=== PATIENT | male | born 1950 | race Caucasian/White ===

== ENCOUNTER 2020-11-06 08:59 | Outpatient (CLI) | payer MEDICARE, SELFPAY | END 2020-11-06 09:00 | disposition home or self-care (01) | LOC: ANHCOVIDVC 08:59 | PROVIDERS: PCP Family Medicine; Visit Provider Internal Medicine Nephrology | DX: Z23 Encounter for immunization (principal) | CPT/HCPCS: 0001A; 91300 ==

== ENCOUNTER 2020-11-27 08:58 | Outpatient (CLI) | payer MEDICARE, SELFPAY | END 2020-11-27 08:59 | disposition home or self-care (01) | LOC: ANHCOVIDVC 08:59 | PROVIDERS: PCP Family Medicine | DX: Z23 Encounter for immunization (principal) | CPT/HCPCS: 0002A; 91300 ==

== ENCOUNTER → 2021-06-04 04:57 | Outpatient (CLI) | payer MEDICARE, SELFPAY ==
[2021-06-05 01:26] LABS: SARS-CoV-2 RNA PCR Negative
== END ==
PROVIDERS: PCP Family Medicine; Visit Provider Family Medicine
DX: R68.89 Other general symptoms and signs (principal); Z20.822 Contact with and (suspected) exposure to COVID-19
CPT/HCPCS: C9803; U0003; U0005

== ENCOUNTER 2022-07-11 09:21 | Outpatient (CLI) | payer MEDICARE, SELFPAY ==
--- NOTE | ~2022-07-11 | NM_ITS ---
EXAMINATION: NM wilton stress w perfusion DATE: 07/11/2022 11:51 INDICATION: Atrial fibrillation TECHNIQUE: Rest images were obtained following intravenous administration of 9.8 mCi Tc99m tetrofosmi n (Myoview). The patient was infused intravenously with Lexiscan (Regadenoson). Then, 31 mCi Tc99m te trofosmin (Myoview) was administered intravenously, and stress images were obtained. Data was reconst ructed into short axis and horizontal and vertical long axis SPECT images. Gated SPECT images were al so obtained. COMPARISON: None. FINDINGS: There is no definite reversible or fixed perfusion abnormality to suggest ischemia or infar ction. There is normal left ventricular chamber size, wall motion and ejection fraction. Left ventr icular ejection fraction measures >70%. IMPRESSION: 1. Normal myocardial perfusion at rest and during stress. 2. Left ventricular ejection fraction measuring >70%. Reviewed, dictated and finalized at location B.
--- NOTE | 2022-07-11 09:59 | EST_ITS ---
Patient Info Name: Walter Rascon Age: 71 years : 1950 Gender: Male Ht: 73 in Wt: 275 lbs BSA: 2.58 m2 HR: 65 bpm BP: 133 / 75 mmHg Heart Rhythm: Sinus Rhythm Exam Date: 07/11/2022 10:39 AM Exam Location: [facility] Stress Patient Status: Outpatient Admit Date: 07/11/2022 Staff Ordering Physician: Imer Staley MD Attending Provider: Imer Staley MD Exercise Technologist: Angelica Kirk CT Exercise Physician: Young Harry DO Exam Type: CA stress wilton w NM Study Info Indications R07.9 - Chest pain, unspecified A regadenoson stress test was performed. Summary 1. 1. Negative lexiscan stress test for ischemic ST changes by ECG criteria. 2. 2. Stable hemodynamics throughout the test. 3. 3. Nuclear scan to follow and will be reported separately. Please correlate with it. 4. 4. Patient informed of the above results. Protocol: Lexiscan Stress ECG Details Stage: REST Duration (min): 1 min : 25 sec HR (bpm): 64 SBP (mmHg): 133 DBP (mmHg): 75 Stage: REST Duration (min): 14 min : 26 sec HR (bpm): 70 SBP (mmHg): 133 DBP (mmHg): 75 Stage: STAGE 1 Duration (min): 1 min : 0 sec HR (bpm): 69 SBP (mmHg): 126 DBP (mmHg): 74 Stage: RECOVERY Duration (min): 1 min : 0 sec HR (bpm): 72 SBP (mmHg): 126 DBP (mmHg): 74 Stage: RECOVERY Duration (min): 2 min : 0 sec HR (bpm): 74 SBP (mmHg): 126 DBP (mmHg): 74 Stage: RECOVERY Duration (min): 3 min : 0 sec HR (bpm): 72 SBP (mmHg): 122 DBP (mmHg): 68 Stage: RECOVERY Duration (min): 3 min : 0 sec HR (bpm): 72 SBP (mmHg): 122 DBP (mmHg): 68 Rest HR: 70 bpm Peak HR: 76 bpm Rest Sys BP: 133 mmHg Peak Sys BP: 126 mmHg Max Pred HR: 147 bpm % Max Pred HR: 52 % Target HR: 125 bpm Max RPP: 9,576 bpm*mmHg Termination Reason: Completed protocol Cardiac Symptoms: None Total Time: 1 min : 0 sec Rest Walters BP: 75 mmHg Peak Walters BP: 74 mmHg Total Dose: 0.4 mg Resting ECG Sinus rhythm, IRBBB. Stress ECG No ST changes. Arrhythmias None. Report Signatures
== END 2022-07-11 09:22 | disposition home or self-care (01) ==
PROVIDERS: PCP Family Medicine; Visit Provider Family Medicine
DX: I48.91 Unspecified atrial fibrillation (principal); R07.9 Chest pain, unspecified
CPT/HCPCS: 78452; 93017; A9502; J2785

== ENCOUNTER 2023-04-06 09:20 | Emergency (ER) | payer MEDICARE, SELFPAY ==
[2023-04-06 09:37] VITALS: BP 129/60; PULSE 73; RESP 18; TEMP 36.2; O2SAT 99
--- NOTE | 2023-04-06 09:48 | ED.GENADULT ---
HPI - General Adult General Chief complaint: Extremity Problem,Nontraumatic Stated complaint: lt leg discomfort Time Seen by Provider: 04/06/23 09:49 Source: patient Mode of arrival: ambulatory Limitations: no limitations History of Present Illness HPI narrative: 72 y/o male with hx afib, diabetes, and htn presented for c/o left calf vein irritation since last night. States he felt like 'a worm was crawling up the leg' which caused difficulty sleeping. States he applied 'neuropathy cream' to the site and was able to sleep. This morning he woke with the same sensation, which improved after wearing his compression stockings. 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 Denies history of blood clot in leg. Currently denies redness, swelling or calf pain/tenderness, numbness, tingling or weakness. Denies chest pain, palpitations, sob, n/v/d/f/c. Takes ASA 81mg. Related Data Home Medications Medication Instructions Recorded Confirmed blood sugar diagnostic #10 ea 09/15/19 04/06/23 cholecalciferol (vitamin D3) 25 25 mcg PO DAILY 10/07/19 04/06/23 mcg (1,000 unit) capsule mecobalamin (vitamin B12) 5,000 5,000 mcg PO DAILY 10/07/19 04/06/23 mcg disintegrating tablet bwtdvnnnrsgn-oqgwwxrt-rzfvrx tablet 1 tablet PO DAILY 10/07/19 04/06/23 aspirin 81 mg tablet,delayed 81 mg PO DAILY 08/13/20 04/06/23 release insulin degludec 100 60 unit subcut DAILY 12/02/21 04/06/23 unit-liraglutide 3.6 mg/mL(3 mL) subcutaneous pen (Xultophy 100/3.6) Allergies Allergy/AdvReac Type Severity Reaction Status Date / Time WILMAN Inhibitors Allergy Mild Unknown Verified 04/06/23 09:41 fosinopril Allergy Unknown Cough Verified 04/06/23 09:41 latex Allergy Unknown unknown Verified 04/06/23 09:41 neomycin Allergy Unknown Rash Verified 04/06/23 09:41 Sulfa (Sulfonamide Allergy Unknown unknown Verified 04/06/23 09:41 Antibiotics) Review of Systems Review of Systems: CONSTITUTIONAL: Denies body aches, fever, chills EYES: Denies visual changes ENT: Denies rhinorrhea, congestion CARDIOVASCULAR: Denies chest pain, palpitations, or edema. RESPIRATORY: Denies cough or dyspnea. GASTROINTESTINAL: Denies abdominal pain, nausea, vomiting, or diarrhea. SKIN: Denies rash, itching, or wounds. MUSCULOSKELETAL: Reports left calf irritation Denies back pain, joint pain, or myalgia. NEUROLOGIC: Denies headache, numbness, tingling, or weakness. PSYCH: Denies depression or anxiety. All systems reviewed & are unremarkable except as noted in HPI and below PMFSH Past Medical History Medical History Afib Anemia Chest pain Hyperlipidemia Hypertension Neuropathy Other male erectile dysfunction Proteinuria Renal insufficiency Type 2 diabetes mellitus with diabetic nephropathy Surgical History Surgical History Appendicitis Previous back surgery Family History Family History Grandparent Family history of cardiovascular disease Family history of pancreatic cancer Other Family history of arthritis Family history of osteoporosis Social History Social History Smoking status: Never smoker Alcohol intake: never Substance use: never Substance use type: does not use Lack of Transportation: No Lack of Food: Never True Current Housing: I Have Housing Concerned About Future Housing: No Difficulty Paying Gas/Electric Bills: No Difficulty Paying for Meds: No Currently Unemployed: No Education: Associate Degree Difficulty w/ Childcare or Family Care: No Living arrangements: with family Occupation/Education: retired Gender identity (if verbalized by the patient): Male Spiritual care concerns: No Agree to blood products: Yes Comments At [facility]
== END 2023-04-06 10:33 | disposition left against medical advice (07) ==
PROVIDERS: Emergency Provider Nurse Practitioner Family; PCP Family Medicine
DX: I83.92 Asymptomatic varicose veins of left lower extremity (principal); I48.91 Unspecified atrial fibrillation; E78.5 Hyperlipidemia, unspecified; I10 Essential (primary) hypertension; E11.42 Type 2 diabetes mellitus with diabetic polyneuropathy; Z79.4 Long term (current) use of insulin; Z79.82 Long term (current) use of aspirin
CPT/HCPCS: 93971; 99211; G0463

== ENCOUNTER 2023-04-06 13:57 | Outpatient (CLI) | payer MEDICARE, SELFPAY ==
--- NOTE | ~2023-04-06 | US_ITS ---
EXAMINATION: US venous doppler [facility] DATE: 04/06/2023 14:39 INDICATION: Localized swelling of the left lower limb TECHNIQUE: Grayscale ultrasound images without and with compression and Doppler ultrasound images of the left lower extremity veins were obtained. COMPARISON: None. FINDINGS: The visualized portions of left common femoral vein, profunda (deep) femoral vein, femoral vein, popl iteal vein, peroneal veins, posterior tibial veins, gastrocnemius vein and greater saphenous vein out flow are patent. IMPRESSION: 1. No deep venous thrombosis in the left lower limb. Reviewed, dictated and finalized at location B.
== END 2023-04-06 13:58 | disposition home or self-care (01) ==
PROVIDERS: PCP Family Medicine; Visit Provider Internal Medicine Cardiovascular Disease
DX: R60.0 Localized edema (principal)
CPT/HCPCS: 93971

== ENCOUNTER 2024-02-20 07:29 | Outpatient (CLI) | payer MEDICARE, SELFPAY ==
[2024-02-20 08:40] LABS: Hemoglobin 11.7 g/dL (14.0-18.0); Mean Corpuscular HGB Conc 33.4 g/dl (32-36); Mean Corpuscular Hemoglobin 30.3 pg (26-34); Mean Corpuscular Volume 90.7 fl (80-100); Platelet Count Result 278 k/mm3 (150-375); Red Blood Count 3.86 M/mm3 (4.6-6.20); Red Cell Distribution Width 12.8 % (11.5-14.5); White Blood Count 7.3 K/mm3 (4.5-10.0)
[2024-02-20 08:53] LABS: Albumin Level 4.3 g/dL (3.5-5.1); Anion Gap 12 mmol/L (4-12); Blood Urea Nitrogen 26 mg/dL (9-20); Calcium 9.5 mg/dL (8.4-10.2); Carbon Dioxide 24 mmol/L (22-30); Chloride 105 mmol/L (98-107); Creatine Kinase 182 U/L (55-170); Estimated Glomerular Filt Rate 31; Glucose 160 mg/dL (65-110); Phosphorus 3.8 mg/dL (2.5-4.5); Potassium 4.4 mmol/L (3.4-5.0); Sodium 141 mmol/L (137-145)
[2024-02-20 09:49] LABS: Appearance Urine Clear (Clear); Bacteria Urine None Seen /hpf; Bilirubin Urine Negative (Negative); Blood Urine Negative (Negative); Color Urine Yellow (Yellow); Glucose Urine UA Negative (Negative); Ketones Urine Negative (Negative); Leukocyte Esterase Ur Negative LEU/UL (Negative); Nitrate Urine Negative (Negative); Non Pathogenic Casts 0-2; Protein Urine 2+ mg/dL (Negative); RBC Urine 0-2 /hpf (0-2); Specific Grav Ur 1.012 (1.001-1.035); Squamous Epithelial Cell Urine None Seen /hpf (Few); Urobilinogen Urine 0.2 mg/dL (<2.0); WBC Urine 0-5 /hpf (0-3); pH Urine 5.5 (5.0-9.0)
[2024-02-20 10:00] LABS: Add Urine Microscopic? YES
[2024-02-20 10:16] LABS: Creatinine Urine 88.4 mg/dL
[2024-02-20 10:24] LABS: Sodium Urine Random 89 meq/L
== END 2024-02-20 07:30 | disposition home or self-care (01) ==
LOC: ANHLAB 07:32
PROVIDERS: PCP Family Medicine; Visit Provider Internal Medicine Nephrology
DX: E11.21 Type 2 diabetes mellitus with diabetic nephropathy (principal); N18.32 Chronic kidney disease, stage 3b
CPT/HCPCS: 36415; 80069; 81001; 82550; 82570; 84300; 85027

== ENCOUNTER 2024-03-02 15:24 | Outpatient (CLI) | payer MEDICARE, SELFPAY ==
--- NOTE | ~2024-03-02 | US_ITS ---
US renal BI Ordering provider: Claudy Hernandez MD History: . N18.32 - Chronic kidney disease, stage 3b . Comparison: The Technique: Ultrasound bilateral kidneys. Findings: RIGHT KIDNEY: Measures 13.5x 8.1x 3.9 cm in length which is normal in size. 2 cysts are seen measurin g 1.3 x 1.1 x 1.1 and 1.2 x 1.2 x 1.1 cm.. No renal mass or visualized echogenic stones. Otherwise, n ormal echotexture No hydronephrosis. Normal renal cortical thickness. Lobulated outline. LEFT KIDNEY: Measures 13.1x 5.6x 5.1 cm in length which is normal in size. 2 cysts are seen measuring 4.3 x 3.5 x 5 and 2.2 x 1.4 x 2.3 cm. No renal mass or visualized echogenic stones. Otherwise, lisandra l echotexture . No hydronephrosis. Normal renal cortical thickness. Lobulated outline. BLADDER: Normal. Ureteral jets were not seen bilaterally. IMPRESSION: Lobulated outline of both kidneys. Bilateral renal cysts. Reviewed, dictated and finalized at location A.
== END 2024-03-02 15:25 | disposition home or self-care (01) ==
PROVIDERS: PCP Family Medicine; Visit Provider Internal Medicine Nephrology
DX: N18.32 Chronic kidney disease, stage 3b (principal); N28.1 Cyst of kidney, acquired
CPT/HCPCS: 76775

== ENCOUNTER 2025-06-20 15:03 | Outpatient (CLI) | payer MEDICARE, SELFPAY ==
--- NOTE | ~2025-06-20 | XR_ITS ---
EXAMINATION: XR finger 4th LT min 2V, 06/20/2025 15:12 CDT HISTORY: M25.549 - Pain in jts of unspecified hand, 4TH PIP SWOLLEN COMPARISON: No comparisons available. Findings: No acute fracture or malalignment. No significant degenerative changes. Soft tissues unremarkable. Impression: No acute fracture or malalignment. Reviewed, dictated and finalized at location P. Impression: No acute fracture or malalignment.
--- OUTSIDE RECORDS SUMMARY | 2025-06-20 16:53 | XMS_ITS | Clinical Summary ---
Author Organization [facility] Address [address] [place] [id number] Phone Care Team Providers Care Administrative Officer Name Role Phone Imer Staley Primary Care Provider [phone] Allergies Active Allergy Reactions Criticality Noted Date Comments Fosinopril Swelling Hydralazine Swelling Latex Rash Medium 11/30/2018 Sulfa Antibiotics Rash Medium 05/31/2018 Other reaction(s): Hives Medications olmesartan (BENICAR) 40 MG tablet 1 daily 0 8 Active SITagliptin-me tFORMIN (JANUMET) 50-1000 MG per tablet 1 bid 0 8 Active cholecalcifero l (VITAMIN D-3) 2000 units capsule 1 daily 6 Active pravastatin (PRAVACHOL) 40 MG tablet Take 40 mg by mouth 1 (one) time each day 0 9 Active glimepiride (AMARYL) 4 MG tablet Take 4 mg by mouth 2 (two) times a day 0 9 Active furosemide (LASIX) 80 MG tablet Take 80 mg by mouth 1 (one) time each day 0 9 Active SOLIQUA 100-33 UNT-MCG/ML solution pen-injector INJECT 16 UNITS SUBCUTANEOUSLY ONCE DAILY 1 9 Active Cyanocobalamin (B-12) 1000 MCG capsule Take by mouth 6 Active metoprolol succinate XL (TOPROL-XL) 50 MG 24 hr tablet Take 1 tablet (50 mg total) by mouth 1 (one) time each day 30 tablet 5 0 Active XULTOPHY 100-3.6 UNIT-MG/ML solution pen-injector INJECT 36 UNITS SUBCUTANEOUSLY NIGHTLY 0 Active Multiple Vitamins-Bone Glue Maker als (CENTRUM SILVER ADULT 50+) tablet take daily Active glucose blood (OneTouch Ultra) test strip Use to test glucose 2 times daily 0 Active RELION PEN NEEDLES 31G X 6 MM misc INJECT 1 ONCE DAILY DIRECTED 0 Active glimepiride (AMARYL) 4 MG tablet Take 4 mg by mouth 2 times daily 9 Active aspirin EC 81 MG EC tablet Take 81 mg by mouth daily 0 Active Cartia XT 180 MG 24 hr capsule Take 180 mg by mouth 1 (one) time each day 0 Active methocarbamol (ROBAXIN) 500 MG tablet TAKE 1 TABLET BY MOUTH AT BEDTIME NEEDED FOR PAIN 0 Active spironolactone (ALDACTONE) 25 MG tablet Take 1 tablet by mouth once daily 90 tablet 2 Active insulin aspart (NovoLOG) 100 UNIT/ML injection Inject 15 Units under the skin in the morning and 15 Units in the evening. 2 Active Active Problems Problem Noted Date Diagnosed Date Stage 3a chronic kidney disease 10/06/2020 Atrial fibrillation with rapid ventricular respo nse 09/28/2019 Hyperlipidemia due to type 2 diabetes mellitus 0 02/08/2019 Overview (10/09/2019): Last Assessment & Plan: Goal of treatment , LDL cholesterol less than 100 ( less than 70 in patients with history of heart attacks and / or strokes ) NonHDL cholesterol ( total cholesterol minus HDL cholesterol ) goal less than 130 ( less than 100 in patients with history of heart attacks and / or strokes ) Low cholesterol, low fat diet was discussed and advised. Daily exercise On statin therapy with Pravachol Persistent proteinuria 01/04/2018 Type 2 diabetes mellitus wit h diabetic chronic kidney disease 11/03/2012 Hypercalcemia 03/25/2012 Essential (primary) hypertension 03/25/2012 Primary generalized osteoarthritis 03/25/2012 Immunizations Immunization Administration Dates Next Due Influenza TIV (IM) 08/13/2022(Deferred: Patient Refused) Pneumococcal Conjugate 08/13/2022(Deferred: Iman ent Refused) Pneumococcal Conjugate 13-Valent 08/13/2022(Defe rred: Patient Refused) Tdap 04/05/2013,04/05/2013 Family History Medical History Relation Comments Kidney disease Neg Hx Social History Tobacco Use Types Packs/Day Years Used Date Smoking Tobacco: Former Smokeless Tobacco: Never Alcohol Use Standard Drinks/Week Comments No 0 (1 standard drink = 0.6 oz pur e alcohol) AUDIT-C Answer Date Recorded Frequency of Alcohol Consumption Never 01/05/2019 Average Number of Drinks Not on file 019 Frequency of Binge Drinking Not on file 09/2018 Sex and Gender Information Value Date Recorded Sex Assigned at Not on file Legal Sex Male 9:51 AM [facility] Gender Identity Not on file Sexual Orientation Not on file Last Filed Vital Signs Vital Sign Reading Time Taken Comments Blood Pressure 110/70 08/13/2022 2:37 PM [facility] Pulse 72 08/13/2022 2:37 PM [facility] Temperature 35.7 C (96.2 F) 08/13/2022 2:37 PM [facility] Respiratory Rate - - Oxygen Saturation - - Inhaled Oxygen Concentration - - Weight 124 kg (273 lb) 08/13/2022 2:37 PM [facility] Height 185.4 cm (6' 1) 08/13/2022 2:37 PM [facility] Body Mass Index 36.02 08/13/2022 2:37 PM [facility] Plan of Treatment Health Maintenance Due Date Last Done Comments Pneumococcal PPSV23/PCV13 65 + Years / Low and Medium Risk (1 of 2 - PCV) 1998 Influenza Vaccine (#1) 2025 Insurance [facility] MEDICARE Care Teams Administrative Officer Relationship Specialty Start Date End Date Luís, Imer PCP - General Family Medicine 08/13/22
--- OUTSIDE RECORDS SUMMARY | 2025-06-20 16:53 | XMS_ITS | Encounter Summary ---
Author Organization [facility] Address [address] [place] [address] Care Team Providers Care Diamond Broker Name Role Phone Unavailable Primary Care Provider Unavailabl e Encounter Details Date Type Department Care Team (Late st Contact Info) Description 06/01/2023 Lab Requisition [facility] - DermPath Lab [address] [place] [address] Meagan Casiano DO [address] [facility] [place] [address] Social History Tobacco Use Types Packs/Day Years Used Date Smoking Tobacco: Never Assessed Sex and Gender Information Value Date Recorded Sex Assigned at Not on file Legal Sex Male 6:02 PM [employer] Gender Identity Not on file Sexual Orientation Not on file documented as of this encounter Plan of Treatment Not on file documented as of this encounter Procedures Procedure Name Priority Date/Time Associated Diagnosis Comments DERMATOPATHOLOGY Routine 06/01/2023 3:37 PM CDT documented in this encounter Results * DERMATOPATHOLOGY (06/01/2023 3:37 PM CDT) Case Report Dermatopathology Report Case: [id number] Authorizing Provider: Meagan Casiano DO Collected: 06/01/2023 03:37 PM Ordering Location: [facility] DermPath Lab Received: 06/02/2023 04:10 PM Pathologist: Kesha Butts MD Specimen: Skin, right ant le 3 1:43 PM CDT DERMATOPATHOLOGY LABORATORY Final Diagnosis Specimen A. SKIN, right ant le: ACANTHOSIS AND HYPERKERATOSIS (L98.8) (see microscopic description and comment) 3 1:43 PM CDT DERMATOPATHOLOGY LABORATORY at 1342 CDT Clinical History R/O NMSC 3 1:43 PM CDT DERMATOPATHOLOGY LABORATORY Gross Description Specimen A: Received is one formalin filled container labeled with the patient's name and designated right ant le. The specimen consists of a shave biopsy measuring 6x6x1 mm. Jar 0. 3 1:43 PM CDT DERMATOPATHOLOGY LABORATORY Microscopic Description Specimen A. SKIN, right ant le: Sections show a superficial biopsy with acanthosis and hyperkeratosis. There is minimal dermis present for evaluation with scattered fibroblasts. COMMENT: These histological findings can be seen in a superficial biopsy of a dermatofibroma. 3 1:43 PM CDT DERMATOPATHOLOGY LABORATORY Disclaimer An external and internal positive and negative controls are appropriate for the histochemical, immunohistochemical and immunofluorescence stain(s) in this case (if any), except where stated explicitly. The performance characteristics of the stain(s) cited in this report were developed and its performance characteristic determined by the Dermatopathology Laboratory at [facility], directed by Dr. Opal Butts. These tests need not be, and therefore are not, approved by the [place] Food and Drug Administration. The tests are used for clinical purposes. Billing Codes Specimen Charges Stain Charges 67919 1 3 1:43 PM CDT DERMATOPATHOLOGY LABORATORY Embedded Images 3 1:43 PM CDT DERMATOPATHOLOGY LABORATORY Pathology/Cytolo gy TISSUE SPECIMEN FROM SKIN / Unknown 06/01/2023 3:37 PM CDT 06/02/2023 4:10 PM CDT Meagan Casiano DO LAB - PATHOLOGY/CYTOLOGY ORDERABLES Final Result DERMATOPATHOLOGY LABORATORY [facility] - Department of Dermatology [address], [address] [phone] documented in this encounter Visit Diagnoses Not on filedocumented in this encounter
--- OUTSIDE RECORDS SUMMARY | 2025-06-20 16:53 | XMS_ITS | Clinical Summary ---
Author Organization [facility] Address [facility] [place] [address] Care Team Providers Care Restaurant Area Director Name Role Phone Leroy Kenney MD Unavailable [phone] Yusuf Radford MD Primary Care Provider [phone] Allergies Active Allergy Reactions Criticality Noted Date Comments Fosinopril Swelling Hydralazine Swelling Latex Rash Medium 11/30/2018 Sulfa Antibiotics Hives,Rash Medium 05/31/2018 Other reaction(s): Hives Medications multi vitamin/mineral s tablet Take 1 tablet by mouth daily. Active vitamin D3, cholecalciferol , 1000 UNIT Tab tablet Take 2,000 Units by mouth daily. Active vitamin B-12 (CYANOCOBALAMIN ) 1000 mcg tablet Take 1,000 mcg by mouth daily. Active furosemide 80 MG tablet Take 80 mg by mouth daily. Active glimepiride 4 MG tablet Take 4 mg by mouth 2 (two) times daily before meals. Active Olmesartan Medoxomil 40 MG Tab Take 1 tablet by mouth every evening. Active pravastatin 40 MG tablet Take 40 mg by mouth every evening. Active SITagliptin-met FORMIN HCl 50-1000 MG Tab Take 1 tablet by mouth 2 (two) times daily with meals. Active Insulin Degludec-Liragl utide 100-3.6 UNIT-MG/ML Solution Pen-injector Inject 40 Units into the skin daily. Active spironolactone 25 MG tablet Take 25 mg by mouth every morning. Active aspirin EC 81 MG tablet Take 1 tablet (81 mg total) by mouth daily. 05/07/2020 Active dilTIAZem CD (CARDIZEM CD) 180 MG 24 hr capsule Take 1 capsule (180 mg total) by mouth daily. Call for appt for future refills 30 capsule 02/20/2023 Active Active Problems Problem Noted Date Diagnosed Date Atrial fibrillation with RVR 09/28/2019 Atrial fibrillation 09/28/2019 Hypokalemia 08/27/2019 Abscess of buttock, right 08/26/2019 Abscess of right buttock 08/26/2019 Hypertension associated with diabetes 02/08/2019 Overview (08/26/2019): Last Assessment & Plan: Goal blood pressure is less than 140/85 Low salt diet recommended Daily aerobic exercise Continue current meds, including WILMAN-I or ARB Check microalbumin Hyperlipidemia due to type 2 diabetes mellitus 0 02/08/2019 Overview (08/26/2019): Last Assessment & Plan: Goal of treatment [...] Daily exercise On statin therapy with Pravachol Type 2 diabetes mellitus wit h hyperglycemia, with long-term current use of insulin 11/30/2018 Overview (08/26/2019): Last Assessment & Plan: Hba1c was Lab Results Component Value Date HGBA1C 7.1 % 02/08/2019 today, indicating adequate DM control 1800 calorie, consistent carb diet recommended, no more than 3-45 grams of carbs per meal, avoiding concentrated sweet drinks and rapid absorption carbs. 25-45 min daily aerobic and resistance exercise recommended Prevention and treatment of hyypoglcyemia discussed. Blood glucose monitoring with fingers sticks 2 x day. 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 Encounters Date Type Department Care Team Description 04/10/2025 9:50 AM CDT - 04/10/2025 11:59 PM CDT Hospital Encounter [facility] [address] [place] [address] Claudy Hernandez MD Discharge Disposition: Home or Self Care (Routine Discharge) 04/10/2025 9:45 AM CDT - 04/10/2025 9:49 AM CDT Hospital Encounter [facility] [address] [place] [address] Young Harry DO Discharge Disposition: Home or Self Care (Routine Discharge) 04/10/2025 Orders Only [facility] [address] [place] [address] Claudy Hernandez MD 04/10/2025 Orders Only [facility] [address] [place] [address] Young Harry DO 04/10/2025 Travel from Last 3 Months Immunizations Immunization Administration Dates Next Due Tdap (Generic) 04/05/2013 Family History Medical History Relation Comments aortic aneurysm Father arrhythmia Father Relation Status Comments Father Social History Tobacco Use Types Packs/Day Years Used Date Smoking Tobacco: Former Cigarettes Q uit: 1970 Smokeless Tobacco: Never Alcohol Use Standard Drinks/Week Comments Yes 0 (1 standard drink = 0.6 oz pur e alcohol) rarely AUDIT-C Answer Date Recorded Frequency of Alcohol Consumption Never 09/28/2019 Average Number of Drinks Not on file 020 Frequency of Binge Drinking Not on file 09/08 Sex and Gender Information Value Date Recorded Sex Assigned at Not on file Legal Sex Male 7:27 PM CDT Gender Identity Not on file Sexual Orientation Not on file Last Filed Vital Signs Vital Sign Reading Time Taken Comments Blood Pressure 151/83 06/26/2022 6:00 PM CDT Pulse 67 06/26/2022 6:00 PM CDT Temperature 36.2 C (97.1 F) 06/26/2022 2:27 PM CDT Respiratory Rate 20 06/26/2022 6:00 PM CDT Oxygen Saturation 95% 06/26/2022 6:00 PM CDT Inhaled Oxygen Concentration - - Weight 120.7 kg (266 lb) 06/26/2022 2:27 PM CDT Height 185.4 cm (6' 1) 06/26/2022 2:27 PM CDT Body Mass Index 35.09 06/26/2022 2:27 PM CDT Plan of Treatment Health Maintenance Due Date Last Done Comments Kidney Health Evaluation 1948 Diabetes: Retinopathy Eye Exam 1966 Hepatitis C 1966 Pneumococcal Vaccine: 50+ Years (1 of 2 - PCV) 1967 Zoster Vaccines (1 of 2) 1998 Annual Medicare Wellness Visit 2013 Hemoglobin A1C 03/29/2020 09/29/2019, 12/06, 02/25/2017 DTaP, Tdap and Td Vaccines (2 - Td or Tdap) 04/05/2023 04/05/2013 RSV Immunization or 60+ Years (1 - 1-dose 75+ series) 2023 COVID-19 Vaccine ( - season) 2025 Influenza Adult (#1) 2025 Lipid Panel 04/10/2026 04/10/2025, 11/07, 11/25/2024, Additional history exists Meningococcal B Vaccine Aged Out No l onger eligible based on patient's age to complete this topic Meningococcal Vaccine Aged Out No jing manuel eligible based on patient's age to complete this topic RSV Immunizations Under 20 Months Aged Out No longer eligible based on patient's age to complete this topic Goals Goal Patient Goal Type Associated Problems Recent Progress Patient-Stated? Author HOME WITH [facility] Jennifer Honeycutt RN Procedures Procedure Name Priority Date/Time Associated Diagnosis Comments HC CREATININE OTH SOURCE Routine 04/10/2025 3:32 PM CDT Stage 3b chronic kidney disease (CMS/HCC) Disorder of kidney and ureter, unspecified PTH - INTACT Routine 04/10/2025 9:50 AM CDT Stage 3b chronic kidney disease (CMS/HCC) Disorder of kidney and ureter, unspecified CBC, AUTO, NO DIFF Routine 04/10/2025 9: 50 AM CDT Stage 3b chronic kidney disease (CMS/HCC) Disorder of kidney and ureter, unspecified RENAL FUNCTION PANEL Routine 04/10/2025 9:50 AM CDT Stage 3b chronic kidney disease (CMS/HCC) Disorder of kidney and ureter, unspecified LIPID PANEL Routine 04/10/2025 9:50 AM CDT Hyperlipidemia HEMOGLOBIN, GLYCOSYLATED Routine 09/29/2019 5:47 AM MEDIA SERVICES COORDINATOR from Last 3 Months or Most Recently Relevant to Health Maintenance Results * (ABNORMAL) PROTEIN CREAT RATIO URINE (04/10/2025 3:32 PM CDT) PROTEIN URINE TOTAL RANDOM 22.8(H) <10 MG/DL 04/10/2025 3:50 PM CDT [facility] CREATININE (U) 36.2(L) 39 - 259 MG/DL 04/10/2025 3:50 PM CDT [facility] PROTEIN/CREATIN INE RATIO 0.6 04/10/2025 3:50 PM CDT [facility] URINE SPECIMEN / Unknown 04/10/2025 3:32 PM CDT us Claudy Hernandez MD URINE ORDERABLES Final Result [facility] [address] [place] [address], [place] [phone] * PTH - INTACT (04/10/2025 9:50 AM CDT) PTH INTACT 72.0 18.4 - 80.1 PG/ML 04/10/2025 1:44 PM CDT [facility] 04/10/2025 9:50 AM CDT us Claudy Hernandez MD LABORATORY Final Result Performing Organization Address City/[facility]/ZIP Co de Phone Number [facility] [address] [place] [address], [place] [phone] * (ABNORMAL) RENAL FUNCTION PANEL (04/10/2025 9:50 AM CDT) [facility] GLUCOSE 191(H) 70 - 99 MG/DL 04/10/2025 10:41 AM T [facility] BUN 34(H) 7 - 18 MG/DL 04/10/2025 10:41 AM T [facility] CREATININE S/P/B 2.17(H) 0.7 - 1.3 MG/DL 04/10/2025 10:41 AM T [facility] SODIUM S/P/B 142 136 - 145 MMOL/L 04/10/2025 10:41 AM T [facility] POTASSIUM S/P/B 4.3 3.5 - 5.1 MMOL/L 04/10/2025 10:41 AM T [facility] CHLORIDE S/P/B 105 100 - 108 MMOL/L 04/10/2025 10:41 AM T [facility] CO2 27.2 21 - 32 MMOL/L 04/10/2025 10:41 AM [facility] CALCIUM S/P/B 9.0 8.5 - 10.1 MG/DL 04/10/2025 10:41 AM [facility] ALBUMIN S/P/B 3.8 3.4 - 5.0 G/DL 04/10/2025 10:41 AM [facility] PHOSPHORUS 3.3 2.5 - 4.9 MG/DL 04/10/2025 10:41 AM [facility] ANION GAP 9.8 5 - 15 MMOL/L 04/10/2025 10:41 AM [facility] BUN CREATININE RATIO 15.7 6 - 26 04/10/2025 10:41 AM T [facility] GFR ESTIMATE 31(L) >90 ML/MIN/1.7 3 M2 04/10/2025 10:41 AM T [facility] Comment: NOTE: eGFR is not calculated for patients <18 years of age. This is an estimated GFR calculation using the new CKD EPI creatinine equation without race and so does not require a correction factor for race. This estimated GFR should not be used for calculating drug doses. 04/10/2025 9:50 AM CDT Claudy Hernandez MD LABORATORY Final Result [facility] [address] [place] [address], * LIPID PANEL (04/10/2025 9:50 AM CDT) CHOLESTEROL 141 <200.0 MG/DL 04/10/2025 10:44 AM T [facility] TRIGLYCERIDES 122 <150 MG/DL 04/10/2025 10:44 AM [facility] HDL 47 >40.0 MG/DL 04/10/2025 10:44 AM [facility] LDL (CALCULATED) 70 <100 MG/DL 04/10/20 25 10:44 AM [facility] Comment:CALCULATED USING THE FRIEDEWALD EQUATION NON HDL CHOLESTEROL 94 <130 MG/DL 04/10 10:44 AM T [facility] CHOL/HDL RATIO 3.0 0.0 - 4.5 04/10/2025 10:44 AM T [facility] VLDL CALCULATION 24 5 - 55 MG/DL 04/10/2025 10:44 AM [facility] LIPID INTERPRETATION 04/10/2025 10:44 AM [facility] Comment: NIH CONCENSUS REPORT RECOMMENDATIONS: ADULT CHILD LOW RISK: CHOLESTEROL <200 <170 TRIGLYCERIDE <150 --- HDL >=60 --- LDL <100 <110 BORDERLINE: CHOLESTEROL 200-239 170-199 TRIGLYCERIDE 150-199 --- HDL 40-59 --- LDL 100-159 110-129 HIGH RISK: CHOLESTEROL >=240 >=200 TRIGLYCERIDE >=200 --- HDL <40 --- LDL >=160 >=130 04/10/2025 9:50 AM CDT Young Harry DO LABORATORY Final Result [facility] [address] [place] [address], * (ABNORMAL) CBC, AUTO, NO DIFF (04/10/2025 9:50 AM CDT) WBC 8.41 4.4 - 11.0 x10'3/uL 04/10/2025 10:29 AM CDT [facility] RBC 4.34(L) 4.50 - 5.90 x10'6/uL 04/10/2025 10:29 AM CDT [facility] HGB 12.7(L) 14.0 - 17.5 G/DL 04/10/2025 10:29 AM CDT [facility] HCT 37.2(L) 41.5 - 50.4 % 04/10/2025 10:29 AM CDT [facility] MCV 85.7 80.0 - 96.0 FL 04/10/2025 10:29 AM CDT [facility] MCH 29.3 26.5 - 31.4 PG 04/10/2025 10:29 AM CDT [facility] MCHC 34.1 31.9 - 34.8 G/DL 04/10/2025 10:29 AM CDT [facility] RDW 12.7 12.3 - 14.3 % 04/10/2025 10:29 AM CDT [facility] PLT 248 151 - 353 x10'3/uL 04/10/2025 10:29 AM CDT [facility] MPV 10.3 9.7 - 11.9 FL 04/10/2025 10:29 AM CDT [facility] 04/10/2025 9:50 AM CDT Claudy Hernandez MD LABORATORY Final Result Performing Organization Address City/[facility]/ZIP Co de Phone Number [facility] [address] [place] [address], [place] [phone] * (ABNORMAL) HEMOGLOBIN, GLYCOSYLATED (09/29/2019 5:47 AM MEDIA SERVICES COORDINATOR) HGB A1C 8.5(H) <5.7 % 09/29/2019 10:27 AM MEDIA SERVICES COORDINATOR [facility] Comment: INCREASED RISK OF DIABETES <5.7% NON-DIABETES 5.7-6.4% INCREASED RISK FOR FUTURE DIABETES > OR = 6.5 CONSISTENT WITH DIABETES STANDARDS OF MEDICAL CARE IN DIABETES-2010 DIABETES CARE, 33(SUPP 1): S1-S61,2010 09/29/2019 5:47 AM MEDIA SERVICES COORDINATOR Ning Barber APRN LABORATORY Final Result [facility] [address] [place] [address], [place] [phone] from Last 3 Months or Most Recently Relevant to Health Maintenance Insurance [employer] MEDICARE Advance Directives * Full Code (Latest Code Status on File) Date Activated Date Inactivated Comments 09/28/2019 4:10 PM 09/29/2019 5:09 PM * Full Code Date Activated Date Inactivated Comments 09/28/2019 4:03 PM 09/28/2019 4:10 PM * Full Code Date Activated Date Inactivated Comments 08/26/2019 4:01 PM 08/27/2019 3:45 PM Care Teams Restaurant Area Director Relationship Specialty Start Date End Date Yusuf Radford MD [address] [place] [id number] PCP - General FAMILY PRACTICE 06/15/24 Leroy Kenney MD [facility]. [facility] [address] [place] [address] [employer] Marketing Team Lead CARDIOVASCULAR DISEASE 09/07/19
--- OUTSIDE RECORDS SUMMARY | 2025-06-20 16:53 | XMS_ITS | Clinical Summary ---
Author Organization [facility] Physician Office Building [address] [place] [id number] Care Team Providers Care Personal Counselor Name Role Phone Claudy Hernandez MD Unavailable [phone] Imer Staley MD Primary Care Provider [phone] Allergies Active Allergy Reactions Criticality Noted Date Comments Fosinopril Swelling Medium 07/19/2020 Hydralazine Swelling Medium 07/19/2020 Latex Rash Medium 11/30/2018 Sulfa (Sulfonamide Antibiotics) Hives Medium 11/06 Medications cholecalcifero l (VITAMIN D-3) 2,000 unit capsule Take by mouth daily 10/17/19 16 Active furosemide (LASIX) 80 mg tablet Take 1 tablet (80 mg total) by mouth daily 10/27/19 19 Active pravastatin (PRAVACHOL) 40 mg tablet Take 1 tablet (40 mg total) by mouth daily 09/19/19 20 Active diltiazem (TIAZAC) 180 mg 24 hr capsule Take 1 capsule (180 mg total) by mouth daily 05/07/20 20 Active Kerendia 20 mg tablet Take 1 tablet by mouth daily 02/13/20 23 Active eplerenone (INSPRA) 25 mg tablet Take 1 tablet (25 mg total) by mouth daily 09/12/19 24 Active magnesium oxide (MAG-OX) 400 mg (241.3 mg elemental magnesium) tablet Take 1 tablet (400 mg total) by mouth daily 09/25/19 24 Active olmesartan (BENICAR) 40 mg tablet Take 1 tablet (40 mg total) by mouth daily 09/04/20 23 Active triamcinolone (KENALOG) 0.1 % cream 09/14/19 24 Active aspirin 81 mg enteric coated tablet Take 1 tablet (81 mg total) by mouth daily Active OneTouch Ultra Test stripIndicatio ns:Type 2 diabetes mellitus with hyperglycemia, without long-term current use of insulin (FORM[facility]) USE 1 STRIP TO CHECK GLUCOSE TWICE DAILY 200 each 11 08/03/20 24 Active ciclopirox (LOPROX) 0.77 % cream APPLY TO AFFECTED AREA OF FEET 1-2 TIMES DAILY 06/24/20 24 Active vitamin B complex capsule Take 1 capsule by mouth daily Active omega-3 fatty acids 1,000 mg capsule Take by mouth Active nystatin-triam cinolone ointment APPLY OINTMENT TOPICALLY TWICE DAILY 11/02/19 25 Active insulin glargine (LANTUS) 100 unit/mL (3 mL) pen for injectionIndic ations:Type 2 diabetes mellitus with hyperglycemia, with long-term current use of insulin (FORM[facility]) Inject 40 Units under the skin nightly 45 mL 2 01/13/20 25 026 Active glimepiride (AMARYL) 4 mg tabletIndicati ons:Type 2 diabetes mellitus with hyperglycemia, with long-term current use of insulin ([facility]) TAKE 1 TABLET BY MOUTH TWICE DAILY WITH MEALS 180 tablet 05/15/20 25 Active Janumet 50-1,000 mg per tabletIndicati ons:Type 2 diabetes mellitus with hyperglycemia, with long-term current use of insulin ([facility]) TAKE 1 TABLET BY MOUTH TWICE DAILY WITH MEALS 180 tablet 06/08/20 25 Active pen needle, diabetic 31 gauge x 15/64 needleIndicati ons:Type 2 diabetes mellitus with hyperglycemia, with long-term current use of insulin ([facility]) USE 1 NEW NEEDLE ONCE DAILY DIRECTED 50 each 06/08/20 25 Active Janumet 50-1,000 mg per tablet Take 1 tablet by mouth 12/18/19 25 025 Discontinued pen needle, diabetic 31 gauge x 15/64 needleIndicati ons:Type 2 diabetes mellitus with hyperglycemia, with long-term current use of insulin ([facility]) USE 1 ONCE DAILY DIRECTED 50 each 03/22/20 25 025 Discontinued Active Problems Problem Noted Date Diagnosed Date CKD stage 4 due to type 2 diabetes mellitus 09/07 Assessment & Plan (01/12/2025 2:44 PM CDT): Chronic problem. Currently taking CKD: Kerendia 20mg daily, olmesartan 40mg daily Managed by Dr Claudy Hernandez (renal). DENISHA 11/02/24; no changes at that time. Nephropathy: On WILMAN-I / ARB s : Yes. olmesartan 40mg daily. Last MA: 07/02/23 (1794). Last creat/GFR: 12/05/24 GFR=30, CR=2.19. Assessment & Plan (09/21/2024 2:43 PM SUSTAINABILITY ANALYST): Chronic problem. Currently taking CKD: Kerendia 20mg daily, olmesartan 40mg daily Managed by Dr Claudy Hernandez (renal). NOV 11/02/24. Nephropathy: On WILMAN-I / ARB s : Yes. olmesartan 40mg daily. Last MA: 07/02/23 (1794). Last creat/GFR: 01/28/24 GFR=28, CR=2.36. Diabetic polyneuropathy asso ciated with type 2 diabetes mellitus 07/02/2023 Assessment & Plan (01/12/2025 2:12 PM CDT): Chronic problem. Did not like how Lyrica made him feel. Reviewed foot care; needs to lotion daily. Aware to check feet nightly, not to go barefoot. Assessment & Plan (09/21/2024 2:45 PM SUSTAINABILITY ANALYST): Chronic problem. Did not like how Lyrica made him feel. Reviewed foot care; needs to lotion daily. Aware to check feet nightly, not to go barefoot. Assessment & Plan (05/19/2024 2:03 PM CDT): Chronic problem. Did not like how Lyrica made him feel. Aware to check feet nightly & not to go barefoot. Assessment & Plan (07/02/2023 2:59 PM CDT): Chronic problem. Did not like how Lyrica made him feel. Aware to check feet nightly & not to go barefoot. Morbid (severe) obesity due to excess calories 1 Class 2 severe obesity due t o excess calories with serious comorbidity and body mass index (BMI) of 35.0 to 35.9 in adult 07/02/2023 Assessment & Plan (07/02/2023 3:39 PM CDT): Discussed healthy diet and importance of regular physical activity (20- 30min/day, 150min/wk). CKD (chronic kidney disease) stage 3, GFR 30-59 ml/min 05/30/2021 Assessment & Plan (09/21/2024 1:51 PM SUSTAINABILITY ANALYST): Chronic problem. Currently taking CKD: Kerendia 20mg daily, olmesartan 40mg daily Managed byDr Claudy Hernandez (renal). Nephropathy: On WILMAN-I / ARB s : Yes. olmesartan 40mg daily. Last MA: 07/02/23 (1793). Last creat/GFR: 01/05/24 GFR=33, CR=2.05. Assessment & Plan (05/19/2024 2:47 PM CDT): Chronic problem. Currently taking CKD: Kerendia 20mg daily, olmesartan 40mg daily Managed byDr Claudy Hernandez (renal). Nephropathy: On WILMAN-I / ARB s : Yes. olmesartan 40mg daily. Last MA: 07/02/23 (1793). Last creat/GFR: 01/05/24 GFR=33, CR=2.05. Assessment & Plan (07/02/2023 3:40 PM CDT): Chronic problem. Currently taking kerendia 20mg daily. Managed byDr Claudy Hernandez (renal). Assessment & Plan (05/30/2021 2:47 PM CDT): Would recommend to add Farxiga Hypertension associated with diabetes 02/08/2019 Assessment & Plan (01/12/2025 2:12 PM CDT): Chronic problem. Controlled on current olmesartan 40mg daily, diltiazem 180mg daily, lasix 80mg daily Assessment & Plan (09/21/2024 1:52 PM SUSTAINABILITY ANALYST): Chronic problem. Controlled on current olmesartan 40mg daily, diltiazem 180mg daily, lasix 80mg daily Assessment & Plan (05/19/2024 2:46 PM CDT): Chronic problem. Controlled on current olmesartan 40mg daily, diltiazem 180mg daily, lasix 80mg daily Assessment & Plan (01/05/2024 3:53 PM CDT): Chronic, stable. Update GFR Continue olmesartan Assessment & Plan (10/01/2023 4:31 PM SUSTAINABILITY ANALYST): Chronic, well-controlled Continue medications including ARB with olmesartan Assessment & Plan (07/02/2023 2:19 PM CDT): Chronic problem. Controlled on current amlodipine-olmesartan 5-40mg daily & lasix 80mg daily. Assessment & Plan (03/05/2023 1:36 PM CDT): Chronic, well-controlled. Continue current regimen Assessment & Plan (11/28/2021 5:07 PM CDT): Goal blood pressure is less than 140/85 Low salt diet was discussed andd recommended The importance of daily aerobic exercise was also emphasized. Continue current meds, including WILMAN-I or ARB, e.g. Check MA Assessment & Plan (01/22/2021 4:05 PM CDT): Goal blood pressure is less than 140/85 Low salt diet was discussed andd recommended The importance of daily aerobic exercise was also emphasized. Continue current meds Check microalbumin Assessment & Plan (07/19/2020 1:33 PM SUSTAINABILITY ANALYST): Goal blood pressure is less than 140/85 Low salt diet was discussed andd recommended The importance of daily aerobic exercise was also emphasized. Continue current meds, including WILMAN-I or ARB, e.g. Benicar Assessment & Plan (02/23/2020 1:48 PM CDT): Goal blood pressure is less than 140/85 Low salt diet recommended Daily aerobic exercise Continue current meds, including WILMAN-I or ARB with Olmesartan Assessment & Plan (10/18/2019 2:29 PM SUSTAINABILITY ANALYST): Goal blood pressure is less than 140/85 Low salt diet recommended Daily aerobic exercise Continue current meds, including WILMAN-I or ARB Assessment & Plan (06/21/2019 11:26 AM CDT): Goal blood pressure is less than 140/85 Low salt diet recommended Daily aerobic exercise Continue current meds, including WILMAN-I or ARB Check microalbumin Assessment & Plan (02/08/2019 2:31 PM CDT): Goal blood pressure is less than 140/85 Low salt diet recommended Daily aerobic exercise Continue current meds, including WILMAN-I or ARB Hyperlipidemia due to type 2 diabetes mellitus 0 02/08/2019 Assessment & Plan (01/12/2025 2:12 PM CDT): Chronic problem. Near goal on current Pravastatin 40mg. Last lipid panel: 12/05/24 LDL=74, TT=907. Assessment & Plan (09/21/2024 1:52 PM SUSTAINABILITY ANALYST): Chronic problem. At goal on current Pravastatin 40mg. Last lipid panel: 01/28/24 LDL=48, GG=095. Assessment & Plan (05/19/2024 2:02 PM CDT): Chronic problem. At goal on current Pravastatin 40mg. Last lipid panel: 01/05/24 LDL=74, GQ=168. Assessment & Plan (01/05/2024 3:54 PM CDT): Chronic, stable. Continue statin therapy with pravastatin 40 mg daily. Update lipid profile Assessment & Plan (10/01/2023 4:30 PM SUSTAINABILITY ANALYST): Chronic, stable Continue statin therapy with Pravachol Assessment & Plan (07/02/2023 2:19 PM CDT): Chronic problem. At goal on current Pravastatin 40mg. Last lipid panel: 10/07/22 LDL=59, WX=075. Assessment & Plan (10/02/2022 4:34 PM SUSTAINABILITY ANALYST): Chronic, well controlled Low fat Low cholesterol diet Exercise Continue statin therapy with Pravastatin Update lipid profile Assessment & Plan (05/30/2021 2:46 PM CDT): LDL at 80 with high triglycerides. Diet and exercise Continue Pravachol Assessment & Plan (01/22/2021 4:05 PM CDT): Goal of treatment , LDL cholesterol less [...] Daily exercise On statin therapy with Pravachol Assessment & Plan (07/19/2020 1:34 PM SUSTAINABILITY ANALYST): Goal of treatment , LDL cholesterol less [...] Daily exercise On statin therapy with Pravachol Assessment & Plan (02/23/2020 1:47 PM CDT): Goal of treatment , LDL cholesterol less [...] and advised. Daily exercise On statin therapy Check fasting lipids Assessment & Plan (10/18/2019 2:29 PM SUSTAINABILITY ANALYST): Goal of treatment , LDL cholesterol less [...] and advised. Daily exercise On statin therapy Assessment & Plan (06/21/2019 11:26 AM CDT): Goal of treatment , LDL cholesterol less [...] Daily exercise On statin therapy with Pravachol Assessment & Plan (02/08/2019 2:30 PM CDT): Goal of treatment , LDL cholesterol less [...] and advised. Daily exercise On statin therapy Type 2 diabetes mellitus wit h hyperglycemia, with long-term current use of insulin 11/30/2018 Assessment & Plan (01/12/2025 2:44 PM CDT): Chronic problem. A1c improved very mildly from 8.6% 09/21/24 to now 8.5%. Has tried to change when he takes Xultophy but does not improve hand burning pain. Not really interested in taking short acting & long acting insulin but aware that current medication is not helping. Aware that current treatment not working. Will switch to long acting & stop xultophy to see if hand burning stops. Current medications: Janumet 50-1000 twice daily before meals Glimepiride 4 mg before breakfast & dinner Lantus 40 units every evening. Will update MA/Cr. Does not mychart. Verified phone #/address to contact re: results. UTD on DM eye exam (no DMR/DME 07/28/24 at [facility]). Strive for regular exercise (30min most days) and diet (get at least 4-5 servings of fruit and veggies daily, avoid processed foods, increase lean protein intake and decrease carb portions as well as fruit juices, regular soda & desserts). Watch carbs and simple sugars. Check the blood sugar twice daily. Check the feet daily for skin breakdown and infection. Assessment & Plan (09/21/2024 2:44 PM SUSTAINABILITY ANALYST): Chronic problem. A1c improved very mildly from 8.8% /08/30/24 to now 8.6%. Reviewed blood sugar log: drinking 3 regular sodas/day (Sundrop has 45g sugar & 46 g carbs per can). Again declines to move to diet soda. Discussed moving to long-acting/short-acting insulin as the current meds are max'd out. Change Xultophy from evening to morning injections to hopefully avoid the overnight lows & ensure that you can take the Xultophy every day & not miss doses. Current medications: Janumet 50-1000 twice daily before meals Glimepiride 4 mg before breakfast & dinner Xultophy 60 units every morning UTD on labs. UTD on DM eye exam (no DMR/DME 07/28/24 at [facility]). Strive for regular exercise (30min most days) and diet (get at least 4-5 servings of fruit and veggies daily, avoid processed foods, increase lean protein intake and decrease carb portions as well as fruit juices, regular soda & desserts). Watch carbs and simple sugars. Check the blood sugar twice daily. Check the feet daily for skin breakdown and infection. Assessment & Plan (05/19/2024 2:46 PM CDT): Chronic problem. A1c improved very mildly from 9.1% 01/05/24 to now 8.8%. Reviewed blood sugar log: drinking 3 regular sodas/day (Sundrop has 45g sugar & 46 g carbs per can). Discussed moving to long-acting/short-acting insulin as the current meds are max'd out. Current medications: Janumet 50-1000 twice daily before meals Glimepiride 4 mg before breakfast & dinner Xultophy 60 units at bedtime UTD on labs. DM eye exam scheduled next month at [facility]. Will send letter to get copy of report. Strive for regular exercise (30min most days) and diet (get at least 4-5 servings of fruit and veggies daily, avoid processed foods, increase lean protein intake and decrease carb portions as well as fruit juices, regular soda & desserts). Watch carbs and simple sugars. Check the blood sugar twice daily. Check the feet daily for skin breakdown and infection. Assessment & Plan (01/05/2024 3:53 PM CDT): Chronic, uncontrolled, worse Would recommend prandial insulin the patient is declining. Increase Xultophy to 60 units HS Continue Janumet and glimepiride Assessment & Plan (10/01/2023 4:30 PM SUSTAINABILITY ANALYST): Hba1c was Lab Results Component Value Date HGBA1C 7.9 10/01/2023 today, indicating inadequate DM control Goal Hba1c under 7 and blood glucose level in the 120-160 range was explained Low carb diet and daily aerobic and /or resistant exercise were advised Prevention and treatment of hyypoglcyemia were discussed with the patient Blood glucose monitoring : bid ( pt not interested in CGM ) Adjustment to medications: Continue current regimen including glimeperide, janumet and Xultophy The patient will try to focus on diet Assessment & Plan (07/02/2023 3:39 PM CDT): Chronic problem. A1c improved from 9.2% 02/2023 to now 7.9%. Current medications: Janumet 50-1000 twice daily before meals Glimepiride 4 mg before breakfast & dinner Xultophy 0-50 units daily, typically 50 units Will update MA/Cr today. Will update labs today. Does not mychart. Verified phone #/address to contact re: results. DM eye exam completed this month at [facility]. Letter sent to get copy of report. Strive for regular exercise (30min most days) and diet (get at least 4-5 servings of fruit and veggies daily, avoid processed foods, increase lean protein intake and decrease carb portions as well as fruit juices, regular soda & desserts). Watch carbs and simple sugars. Check the blood sugar twice daily. Check the feet daily for skin breakdown and infection. Assessment & Plan (03/05/2023 1:36 PM CDT): Hba1c was Lab Results Component Value Date HGBA1C 9.2 03/05/2023 today, indicating inadequate DM control Goal Hba1c and blood glucose explained Diet and exercise were advised Prevention and treatment of hyypoglcyemia were discussed with the patient Blood glucose monitoring : Would recommend CGM but patient not interested. Continue fingersticks twice a day Adjustment to medications: Increase Xultophy to 50 units daily Continue glimepiride and Janumet Patient again not interested in MDI Assessment & Plan (10/02/2022 4:35 PM SUSTAINABILITY ANALYST): Hba1c was Lab Results Component Value Date HGBA1C 8.2 10/02/2022 today, indicating suboptimal DM control but with improvement Goal Hba1c and blood glucose explained Diet and exercise were advised Prevention and treatment of hyypoglcyemia were discussed with the patient Blood glucose monitoring : Twice a day. Patient not interested in CGM Adjustment to medications: Continue Xultophy Continue Janumet and glimepiride Patient not interested in MDI Assessment & Plan (04/17/2022 11:26 AM CDT): Hba1c was Lab Results Component Value Date HGBA1C 9.1 04/10/2022 today, indicating poor DM control Goal Hba1c and blood glucose explained Diet and exercise were advised Prevention and treatment of hyypoglcyemia were discussed with the patient Blood glucose monitoring : 3 x day Adjustment to medications: Hold the Xultophy ( multiple complaints , I told to the patient that her hand pain is very unlikely to be related to this medication is probably morea sign of neuropathic pain ) Start Tresiba, 50 units at bedtime Start Novolog, 15 units before breakfast and dinner. Stay on Glimepiride, but take only 4 mg in the morning Continue with Janumet, same, twice a day. Assessment & Plan (11/28/2021 5:07 PM CDT): Hba1c was Lab Results Component Value Date HGBA1C 8.3 11/28/2021 today, indicating inadequate DM control Goal Hba1c and blood glucose explained Diet and exercise were advised Prevention and treatment of hyypoglcyemia were discussed with the patient Blood glucose monitoring : bid Adjustment to medications: Increase Xultophy to 60 units daily Stay on Janumet and Glimepiride Work on diet and exercise. Assessment & Plan (05/30/2021 2:45 PM CDT): Hba1c was Lab Results Component Value Date HGBA1C 7.5 05/30/2021 today, indicating suboptimal DM control Goal blood glucose levels : 120-160 Target Hba1c : 7-7.5 BG monitoring : bid Prevention and treatment of hyypoglcyemia discussed. Insulin regimen adjustments: Increase Xultophy to 50 units Oral medication adjustments: continue Janumet and Glimepiride Would recommend to add Farxiga Pt to discuss with his patient service coordinator. Assessment & Plan (01/22/2021 4:04 PM CDT): Hba1c was Lab Results Component Value Date HGBA1C 7.2 01/22/2021 today, indicating suboptimal DM control Goal blood sugars in the 120-150 range , with Hb1c under 7.0 % was explained 1800 calorie, consistent carb diet recommended. No more than 30-45 grams of carbs per meal recommended, as well as avoiding high concentrated sweet drinks . 25-45 min daily exercise, combining both aerobic and resistance exercise recommended. The need to monitor blood glucose before meals and bedtime was discussed. Prevention and treatment of hyypoglcyemia discussed. Continue current regimen Assessment & Plan (07/19/2020 1:33 PM SUSTAINABILITY ANALYST): Hba1c was Lab Results Component Value Date HGBA1C 7.4 07/19/2020 today, indicating adequate DM control Goals blood sugars of 120-160 and Hba1c under 7 % was explained. 1800 calorie, consistent carb diet recommended, no more than 3-45 grams of carbs per meal, avoiding concentrated sweet drinks and rapid absorption carbs. 25-45 min daily aerobic and resistance exercise recommended Prevention and treatment of hyypoglcyemia discussed. Blood glucose monitoring with fingers sticks. continue current regimen Assessment & Plan (02/23/2020 1:49 PM CDT): Hba1c was Lab Results Component Value Date HGBA1C 7.0 02/23/2020 today, indicating adequate DM control 1800 calorie, consistent carb diet recommended. No more than 30-45 grams of carbs per meal recommended, as well as avoiding high concentrated sweet drinks . 25-45 min daily exercise, combining both aerobic and resistance exercise recommended. The need to monitor blood glucose before meals and bedtime was discussed. Prevention and treatment of hyypoglcyemia discussed. Insulin dose: Continue current insulin regimen with Xultophy and oral. Assessment & Plan (10/18/2019 2:29 PM SUSTAINABILITY ANALYST): Hba1c was Lab Results Component Value Date HGBA1C 8.0 10/18/2019 today, indicating inadequate DM control 1800 calorie, consistent carb diet recommended. No more than 30-45 grams of carbs per meal recommended, as well as avoiding high concentrated sweet drinks . 25-45 min daily exercise, combining both aerobic and resistance exercise recommended. The need to monitor blood glucose before meals and bedtime was discussed. Prevention and treatment of hyypoglcyemia discussed. Lower glimepiride to 4 mg once a day Start jardiance 25 mg daily Assessment & Plan (06/21/2019 11:25 AM CDT): Hba1c was Lab Results Component Value Date [...] to lower Glimepiride if symptoms of hypoglycemia Assessment & Plan (02/08/2019 2:31 PM CDT): Hba1c was Lab Results Component Value Date HGBA1C 7.1 % 02/08/2019 today, indicating DM control 1800 calorie, consistent carb diet recommended 25-45 min daily aerobic and resistance exercise recommended Prevention and treatment of hyypoglcyemia discussed. Blood glucose monitoring with fingers sticks 1-2 x day . Continue Soliqua and orals Assessment & Plan (11/30/2018 12:42 PM CDT): Your Hba1c today was: Lab Results Component Value Date HGBA1C 10.2 11/30/2018 meaning a 3 month average sugar of : 254 Your goal hba1c is under 7.0 to prevent termite control servicer diabetes complications ( eye , kidney and nerve damage ) . Your goal sugars are in the 90-130 range Daily aerobic ( walking, riding a bike, swimming ) and resistance exercises ( light weight lifting, resistance band stretching ) for at least 30 minutes is recommended If you can not walk, chair exercises for 10-15 min a day would help tremendously. As little as 15-20 minutes exercise , in one or two sessions a day, is still very helpful to improve your diabetes control . Eat small portion meals, trying not to consume no more than 1800 calories a day . Try to eat not more than than 3 servings of carbs ( starches ) wiith your meals. Avoid soft drinks, including regular sodas , fruit juices and sweetened tea. Drink water instead. Eat plenty of green and leafy vegetables, including salads. Take your medications regularly. Setting phone alarms can help . Keep your medication on the kitchen dinner table, by the bedside table or by the sink where they are visible to you. The insulin that you are currently using does not need to be refrigerated. Keep it where you can see it . Monitor your sugar levels with finger sticks regularly and keep a log sheet or book. Bring your sugar meter and /or a log book or log sheet to every office visit. Start Xultophy 16 units in the morning, for a week After a week increase by 3 units every 3 days until sugars are persistenly under 150 in the morning. Continue with Glimepiride and Janumet Fax sugar logs weekly Medical History Medical History Date Comments Type 2 diabetes mellitus Hypertension Hyperlipidemia Family History Relation Name Status Comments Father Mother Social History Tobacco Use Types Packs/Day Years Used Date Smoking Tobacco: Former Cigarettes Smokeless Tobacco: Never Tobacco Cessation:Counseling Given: Not Answered Alcohol Use Standard Drinks/Week Comments Not Currently 0 (1 standard drink = 0.6 oz pur e alcohol) PHQ-2 Answer Date Recorded PHQ-2 Total Score (If total score is 3 or more points, staff should administer the PHQ-9) 0 04/10/2022 Sex and Gender Information Value Date Recorded Sex Assigned at Not on file Legal Sex Male 9:49 AM SUSTAINABILITY ANALYST Gender Identity Not on file Sexual Orientation Not on file Obstetrics History Last Filed Vital Signs Vital Sign Reading Time Taken Comments Blood Pressure 108/60 01/12/2025 1:53 PM CDT Pulse 71 01/12/2025 1:53 PM CDT Temperature - - Respiratory Rate 16 01/12/2025 1:53 PM CDT Oxygen Saturation - - Inhaled Oxygen Concentration - - Weight 116.6 kg (257 lb) 01/12/2025 1:53 PM CDT Height 182.9 cm (6' 0.01) 01/12/2025 1:53 PM CD T Body Mass Index 34.85 01/12/2025 1:53 PM CDT Plan of Treatment Health Maintenance Due Date Last Done Comments Fall Risk Assessment 1950 Hepatitis C Screening 1950 Hepatitis B Screening 1966 Pneumococcal vaccine 65+ (1 of 2 - PCV) 1967 Zoster Vaccine (1 of 2) 1998 Well Visit 65+ 2013 DTaP/Tdap/Td Vaccine (2 - Td or Tdap) 04/05/2023 04/05/2013 Depression Screening 04/10/2023 04/10/2022, 11/28/2021, 05/30/2021, Additional history exists Influenza Vaccine (#1) 2025 Hemoglobin A1C 07/15/2025 01/12/2025, 09/07, 05/19/2024, Additional history exists Lipid Panel 12/05/2025 12/05/2024, 11/07, 11/25/2024, Additional history exists eGFR 12/05/2025 12/05/2024, 01/06, 01/05/2024 Albumin Creatinine Ratio, Urine 01/12/2026 01/12/2025, 07/02/2023, 11/28/2021, Additional history exists Foot Exam 01/12/2026 01/12/2025, 05/08, 09/14/2023, Additional history exists Dilated Eye Exam 07/28/2026 07/28/2024, , 05/20/2021, Additional history exists Abdominal Aortic Aneurysm (A AA) Screen Completed 08/26/2019 Procedures Procedure Name Priority Date/Time Associated Diagnosis Comments ALBUMIN CREATININE RATIO, URINE Routine 01/12/2025 3:14 PM CDT Type 2 diabetes mellitus with hyperglycemia, with long-term current use of insulin (HCC) POCT HEMOGLOBIN A1C Routine 01/12/2025 2 :01 PM CDT Type 2 diabetes mellitus with hyperglycemia, with long-term current use of insulin (HCC) COMPREHENSIVE METABOLIC PANEL Routine 12/05/2024 7:21 AM CDT LIPID PANEL Routine 12/05/2024 7:21 AM CDT DIABETES EYE EXAM Routine 07/28/2024 8:01 AM SUSTAINABILITY ANALYST DIABETES FOOT EXAM Routine 09/14/2023 8:50 AM SUSTAINABILITY ANALYST from Last 3 Months or Most Recently Relevant to Health Maintenance Results * (ABNORMAL) Albumin Creatinine Ratio, Urine (01/12/2025 3:14 PM CDT) Albumin Ur 418.6 mg/L Comment: Interpretive Data No reference range established. Current interpretive data was last revised 2019. Creatinine Ur 137.1 mg/dL [facility]ONT[facility] Comment: Interpretive Data No reference range established. Current interpretive data was last revised 2019. Albumin Creatinine Ratio, Ur 305(H) 1 - 29 mg/g [facility] MONT[facility]GRO Urine 01/12/2025 3:14 PM CDT 01/12/2025 10:13 PM CDT us Violet Bond NP LAB URINE ORDERABLES Cara herrrea Result [facility] MONTENEGRO [id number] Department [place] [address] * (ABNORMAL) POCT hemoglobin A1c (01/12/2025 2:01 PM CDT) Hemoglobin A1C, POC 8.5(A) 4.0 - 5.6 % Blood 01/12/2025 2:01 PM CDT Violet Bond NP POINT OF CARE TEST ORDERA BLES Final Result * Lipid panel (12/05/2024 7:21 AM CDT) SCRIBED Cholesterol, Total 150 30 - 199 mg/dL EXTERNAL LAB SCRIBED Triglycerides 143 <=149 mg/dL EXTERNAL LAB SCRIBED HDL 47 >=40 mg/dL EXTERNAL LAB SCRIBED LDL 74 <=129 mg/dL EXTERNAL LAB Scribed Non-HDL Cholesterol 103 NONE mg/dL EXTERNAL LAB SCRIBED Total Cholesterol/HDL Ratio 150 NONE EXTERNAL LAB Blood 12/05/2024 7:21 AM CDT us Historical Provider LAB BLOOD ORDERABLES Edit ed Result - Final EXTERNAL LAB * (ABNORMAL) Comprehensive metabolic panel (12/05/2024 7:21 AM CDT) SCRIBED Sodium 138 136 - 145 mmol/L EXTERNAL LAB SCRIBED Potassium 4.3 3.5 - 5.1 mmol/L EXTERNAL LAB SCRIBED Chloride 104 100 - 108 mmol/L EXTERNAL LAB SCRIBED Carbon Dioxide 24.5 21 - 32 mmol/L EXTERNAL LAB SCRIBED Urea Nitrogen (BUN) 34(A) 7 - 18 mg/dl EXTERNAL LAB SCRIBED Creatinine 2.19(A) 0.7 - 1.3 mg/dl EXTERNAL LAB SCRIBED Glucose 225(A) 70 - 99 mg/dl EXTERNAL LAB SCRIBED Calcium 9.5 8.5 - 10.1 mg/dl EXTERNAL LAB SCRIBED Bilirubin 0.5 0.2 - 1.2 mg/dl EXTERNAL LAB SCRIBED Plasma Protein 7.2 6.4 - 8.2 g/dl EXTERNAL LAB SCRIBED Albumin 3.6 3.4 - 5.0 g/dl EXTERNAL LAB SCRIBED Alkaline Phosphatase 67 50 - 136 Units/L EXTERNAL LAB SCRIBED Alanine Transaminase (ALT) 24 16 - 60 Units/L EXTERNAL LAB SCRIBED Aspartate Transaminase (AST) 17 15 - 37 Units/L EXTERNAL LAB SCRIBED eGFR 30 >90 - NA EXTERNAL LAB Blood 12/05/2024 7:21 AM CDT Historical Provider LAB BLOOD ORDERABLES Edit ed Result - Final EXTERNAL LAB * DIABETES EYE EXAM (07/28/2024 8:01 AM SUSTAINABILITY ANALYST) Historical Provider HEALTH MAINTENANCE Final Result * DIABETES FOOT EXAM (09/14/2023 8:50 AM SUSTAINABILITY ANALYST) Historical Provider HEALTH MAINTENANCE Final Result from Last 3 Months or Most Recently Relevant to Health Maintenance Insurance [facility] MEDICARE [facility] MEDICARE Care Teams Personal Counselor Relationship Specialty Start Date End Date Imer Staley MD [facility] [place] [address] PCP - General Family Medicine 10/02/22 Claudy Hernandez MD Referring Physician Nephrology 01/22/21
--- OUTSIDE RECORDS SUMMARY | 2025-06-20 16:53 | XMS_ITS | Clinical Summary ---
Author Organization [facility] Address [address] [address] Care Team Providers Care Forestry Worker Name Role Phone Unavailable Primary Care Provider Unavailabl e Source Comments [facility],non-owned Affiliates and Associated Physician Practices is amultiple site organization consisting of ambulatory clinics and hospital sitesin [place], [place], [place] and [place]. This disclosure is being madepursuant to the Care Everywhere program and may not contain all information available regarding this patient. Last updated 18.[facility] Social History Tobacco Use Types Packs/Day Years Used Date Smoking Tobacco: Never Assessed Sex and Gender Information Value Date Recorded Sex Assigned at Not on file Legal Sex Male 6:02 PM [employer] Gender Identity Not on file Sexual Orientation Not on file Plan of Treatment Health Maintenance Due Date Last Done Comments HEPATITIS C SCREENING 09/15/1968 DTAP/TDAP/TD VACCINES (1 - Tdap) 1967 PNEUMOCOCCAL VACCINE 50+ (1 of 1 - PCV) 1998 ZOSTER VACCINE (1 of 2) 1998 Respiratory Syncytial Virus (RSV) Vaccine Pt: or over 60 yrs (1 - 1-dose 75+ series) 2023 DEPRESSION SCREENING 09/07/2024 MEDICARE AWV CALENDAR YEAR 2024 COVID-19 VACCINE (1 - 2023-2 5 season) 2025 INFLUENZA VACCINE (#1) 2025 HEPATITIS B VACCINE Aged Out No longe r eligible based on patient's age to complete this topic HIB VACCINE Aged Out No longer eligi ble based on patient's age to complete this topic HPV VACCINE Aged Out No longer eligi ble based on patient's age to complete this topic MENINGOCOCCAL (Group B) VACC INE SHARED DECISION-MAKING Aged Out No longer eligibl e based on patient's age to complete this topic MENINGOCOCCAL GROUPS A/C/Y/W VACCINE Aged Out No longer eligible b ased on patient's age to complete this topic Insurance [employer] MEDICARE ADV
== END 2025-06-20 15:04 | disposition home or self-care (01) ==
PROVIDERS: PCP Family Medicine; Visit Provider Family Medicine
DX: M25.542 Pain in joints of left hand (principal)
CPT/HCPCS: 73140